=== PATIENT | female | born 1985 | race Caucasian/White ===

== ENCOUNTER 2018-02-15 05:50 | Inpatient (IN) | payer OTHER ==
[~2018-02-15 05:50] MED LIST: CITRIC ACID/SODIUM CITRATE 30 ML UNIT-DOSE CUP PO ONE; ELECTROLYTE-148 SOLN 500 ML IV ONE; TERBUTALINE SULFATE 1 MG/1 ML VIAL SQ ONE
[2018-02-15] MEDS ORDERED: ELECTROLYTE-148 SOLN 500 ML IV ONE (06:20)
[2018-02-15 07:05] VITALS: BMI 35.9
[2018-02-15] MEDS ORDERED: AMPICILLIN SODIUM 2 GM VIAL ONE (07:26)
[2018-02-15 07:28] LABS: BASO % 0.4 % (0-2.0); HEMATOCRIT 34.8 % (32.4-45.2); HEMOGLOBIN 11.8 GM/dL (10.7-15.3); LYMPH % 20.7 % (8-40); MCH 28.6 pg (25.7-33.7); MCHC 33.8 g/dl (32.0-36.0); MEAN CELL VOLUME 84.5 fl (80-96); MEAN PLT VOLUME 10.2 fl (7.5-11.1); MONO % 6.7 % (3.8-10.2); NEUT % 71.2 % (42.8-82.8); PLATELET COUNT 233 K/MM3 (134-434); RBC 4.12 M/mm3 (3.60-5.2); RDW 12.8 % (11.6-15.6)
[2018-02-15 07:49] LABS: ANION GAP 8 (8-16); BLOOD UREA NITROGEN 6 mg/dL (7-18); CALCIUM 8.7 mg/dL (8.5-10.1); CHLORIDE 104 mmol/L (98-107); CO2 26 mmol/L (21-32); CREATININE 0.5 mg/dL (0.55-1.02); GLUCOSE,RANDOM 94 mg/dL (74-106); POTASSIUM 4.2 mmol/L (3.5-5.1); SODIUM 138 mmol/L (136-145)
[2018-02-15 07:50] LABS: INR 0.93 (0.82-1.09); PROTHROMBIN TIME (PATIENT) 10.5 SEC (9.7-13.0)
[2018-02-15 07:53] LABS: ACTIVATED PTT 27.4 SECONDS (25.2-36.5)
--- NOTE | 2018-02-15 08:10 | HP ---
Past Medical History - Admission Chief Complaint: Spontaneous rupture of membrane History of Present Illness: 32 yo @ 35 weeks gestation, EDC 03/16/18, presents to L&D c/o leakage of fluid associated with contractions pain. She had 2 previous C-Sections; she desires permanent sterilization. History Source: Patient Limitations to Obtaining History: No Limitations - Past Medical History ...: 6 ...Para: 4 ...Term: 4 ...: 0 ...Spon : 0 ...Induced : 1 ...Multiple Gestation: 0 ...LMP: 06/10/17 ... Weeks Gestation by Dates: 35.4 ...EDC by Dates: 03/17/18 ...EDC by Sono: 03/16/18 - Past Surgical History Past Surgical History: Yes: Hx Myomectomy: No Hx Transabdominal Cerclage: No - Smoking History Smoking history: Former smoker Have you smoked in the past 12 months: No Aproximately how many cigarettes per day: 0 If you are a former smoker, when did you quit?: 07/2017 - Alcohol/Substance Use Hx Alcohol Use: No History of Substance Use: reports: None - Social History Usual Living Arrangement: Yes: With Significant Other History of Recent Travel: No Home Medications - Allergies Allergies/Adverse Reactions: Allergies Allergy/AdvReac Type Severity Reaction Status Date / Time Pork/Porcine Containing Allergy Intermediate Hives Verified 02/15/18 11:22 Products - Home Medications Home Medications: Ambulatory Orders Pnv No.95/Ferrous Fum/Folic AC [ Tablet] 1 each PO DAILY 10/01/12 Acetaminophen [Tylenol .Regular Strength -] 500 mg PO Q4H PRN #30 tablet Docusate Sodium [Colace] 100 mg PO BID #60 capsule 02/18/18 Ferrous Sulfate [Feosol] 325 mg PO BID #60 tab 02/18/18 Ibuprofen [Motrin -] 600 mg PO Q4H PRN #20 tablet 02/18/18 Vitamins (Sjr) - 1 tab PO DAILY #30 tablet 02/18/18 Review of Systems - Review of Systems Constitutional: reports: No Symptoms Eyes: reports: No Symptoms HENT: reports: No Symptoms Neck: reports: No Symptoms Cardiovascular: reports: No Symptoms Respiratory: reports: No Symptoms Genitourinary: reports: No Symptoms Breasts: reports: No Symptoms Reported Musculoskeletal: reports: No Symptoms Integumentary: reports: No Symptoms Neurological: reports: No Symptoms Endocrine: reports: No Symptoms Hematology/Lymphatic: reports: No Symptoms Psychiatric: reports: No Symptoms Pain Intensity: 5 Physical Exam - Maternity Vital Signs: Vital Signs Temperature 98.6 F 02/15/18 06:42 Pulse Rate 80 02/15/18 06:42 Respiratory Rate 18 02/15/18 06:42 Blood Pressure 127/80 02/15/18 06:42 O2 Sat by Pulse Oximetry (%) Constitutional: Yes: Well Nourished Eyes: Yes: Conjunctiva Clear HENT: Yes: Atraumatic Neck: Yes: Supple, Trachea Midline Cardiovascular: Yes: Regular Rate and Rhythm Lungs: Clear to auscultation - Abdominal Exam/OB Number of Fetuses: Single Presentation: Vertex - Vaginal Exam/OB Vaginal Bleediing: No Dilatation (cm): 0 - Physical Exam ...Motor Strength: WNL Psychiatric: Yes: Alert, Oriented - Labs Lab Results: CBC, BMP 02/15/18 06:30 02/15/18 06:30 Problem List - Problems (1) Previous section complicating , antepartum condition or complication Code(s): O34.219 - MATERNAL CARE FOR UNSP TYPE SCAR FROM PREVIOUS DEL (2) premature rupture of membranes (PPROM) with onset of labor after 24 hours of rupture in first trimester, antepartum Code(s): O42.111 - PRETRM YOANDY ROM, ONSET LABOR > 24 HOURS FOL RUPT, FIRST TRI Assessment/Plan 35 weeks gestation PPROM Multiparity Pre op for and BTL Consent signed Anesthesia to see patient
[2018-02-15] MEDS ORDERED: AMPICILLIN SODIUM 2 GM VIAL IVPB ONE (08:13)
[2018-02-15] MEDS ORDERED: morphine SULFATE/Preservative Free 0.5 MG/ML (1cc Syringe) ONE (08:50)
[2018-02-15] MEDS ORDERED: ceFAZolin SODIUM 1 GM VIAL ONE (08:52)
[2018-02-15] MEDS ORDERED: BUPIVACAINE 0.75% IN DEXTROSE/PF 2ML AMPULE NR ONE (08:59)
[2018-02-15] MEDS ORDERED: OXYTOCIN 10 UNITS/ML VIAL ONE ×2 (09:06→09:53)
[2018-02-15] MEDS ORDERED: METHYLERGONOVINE MALEATE 0.2 MG/1 ML AMP IM PRN (10:11)
[2018-02-15] MEDS ORDERED: ONDANSETRON 4 MG/2 ML VIAL IVPUSH PRN (10:18)
[2018-02-15] MEDS ORDERED: IBUPROFEN 800 MG/8 ML IJ IVPB PRN (10:18)
--- NOTE | 2018-02-15 10:18 | OP ---
Operative Note - Note: Operative Date: 02/15/18 Pre-Operative Diagnosis: PPROM / Previous in labor / Multiparity Operation: Repeat Low Transverse / Bilateral tubal ligation Findings: Multiple adhesions Uterus adherence to anterior abdominal wall Post-Operative Diagnosis: Same as Pre-op Surgeon: Vonda Peace Medical Biller Coder: Dawit Bess Anesthesia: Spinal Specimens Removed: Placenta / Portion of tubes Estimated Blood Loss (mls): 700 Operative Report Dictated: Yes
--- NOTE | 2018-02-15 10:32 | SURG ---
Surgery Top Coater Note Top Coater: Dawit Bess PA-C Date of Service: 02/15/18 Diagnosis: history of repeat Procedure: Cesarian section and tubal ligation I was present for the entirety of the operative procedure. For further detail, please refer to operative report.
[2018-02-15] MEDS ORDERED: OXYTOCIN 20 UNITS in 0.9% NS 20 UNIT/1,000 ML INFUS.BAG IV ONE (11:43)
[2018-02-15] MEDS: OXYTOCIN 20 UNITS in 0.9% NS 20 UNIT/1,000 ML INFUS.BAG IV SCH (11:48)
[2018-02-15] MEDS: IBUPROFEN 800 MG/8 ML IJ IVPB PRN ×2 (12:33→22:50)
[2018-02-15] MEDS: FERROUS SO4 325 MG TABLET (FP) PO SCH (22:47)
[2018-02-16] MEDS: IBUPROFEN 800 MG/8 ML IJ IVPB PRN (07:25)
[2018-02-16 07:31] LABS: BASO % 0.5 % (0-2.0); EOS % 0.5 % (0-4.5); HEMATOCRIT 27.7 % (32.4-45.2); HEMOGLOBIN 9.5 GM/dL (10.7-15.3); LYMPH % 14.8 % (8-40); MCH 29.2 pg (25.7-33.7); MCHC 34.3 g/dl (32.0-36.0); MEAN CELL VOLUME 85.3 fl (80-96); MEAN PLT VOLUME 8.9 fl (7.5-11.1); NEUT % 77.2 % (42.8-82.8); PLATELET COUNT 169 K/MM3 (134-434); RBC 3.24 M/mm3 (3.60-5.2); RDW 12.7 % (11.6-15.6); WHITE BLOOD COUNT 7.4 K/mm3 (4.0-10.0)
--- NOTE | 2018-02-16 08:17 | PN ---
Post Progress Note - Subjective Subjective: c/o pain ,scale 8/10 she took pain meds . not voided yet . Post Day: 1 Type of Delivery: Repeat C/S Vital Signs: Vital Signs Temperature 98.1 F 02/16/18 02:00 Pulse Rate 96 H 02/16/18 02:00 Respiratory Rate 18 02/16/18 07:00 Blood Pressure 110/58 02/16/18 02:00 O2 Sat by Pulse Oximetry (%) 100 02/15/18 11:50 Breast Exam: Yes: Soft, Other (plans to BF , will pump the milk ). No: Engorged Uterus: Yes: Fundus Firm, Fundus below umbilicus, Non-tender Incision: Yes: Dressing dry and intact. No: Redness, Oozing Abdomen/GI: Yes: Abdomen soft, Passing flatus, Tolerating PO (clear liqiuds ). No: Abdominal Distention, Tender Lochia: Yes: Rubra Lochia, amount: Moderate Extremities: Yes: Calves non-tender Perineum: Yes: Intact Activity: Ambulating - Labs Labs: CBC WBC 7.4 K/mm3 (4.0-10.0) 02/16/18 06:00 RBC 3.24 M/mm3 (3.60-5.2) L 02/16/18 06:00 Hgb 9.5 GM/dL (10.7-15.3) L 02/16/18 06:00 Hct 27.7 % (32.4-45.2) L D 02/16/18 06:00 MCV 85.3 fl (80-96) 02/16/18 06:00 MCH 29.2 pg (25.7-33.7) 02/16/18 06:00 MCHC 34.3 g/dl (32.0-36.0) 02/16/18 06:00 RDW 12.7 % (11.6-15.6) 02/16/18 06:00 Plt Count 169 K/MM3 (134-434) D 02/16/18 06:00 MPV 8.9 fl (7.5-11.1) D 02/16/18 06:00 Absolute Neuts (auto) 5.8 # 02/16/18 06:00 Neutrophils % 77.2 % (42.8-82.8) 02/16/18 06:00 Lymphocytes % 14.8 % (8-40) D 02/16/18 06:00 Monocytes % 7.0 % (3.8-10.2) 02/16/18 06:00 Eosinophils % 0.5 % (0-4.5) 02/16/18 06:00 Basophils % 0.5 % (0-2.0) 02/16/18 06:00 Nucleated RBC % 0 % (0-0) 02/16/18 06:00 Other Findings, Remarks: rs cta i/o adequate Problem List - Problems (1) section Code(s): Z98.89 - OTHER SPECIFIED POSTPROCEDURAL STATES * DO NOT USE * (2) care following delivery Code(s): Z39.2 - ENCOUNTER FOR ROUTINE FOLLOW-UP Assessment/Plan anemia s/p repeat c/s day #[address] po care
--- NOTE | 2018-02-16 08:44 | PN ---
Progress Note, Physician Chief Complaint: Pt ambulating and voiding, pain controlled, no anesthesia complaints. - Current Medication List Current Medications: Active Medications Bisacodyl (Dulcolax Suppository -) 10 mg RC PRN PRN PRN Reason: CONSTIPATION Ferrous Sulfate (Feosol -) 325 mg PO BID [facility] Last Admin: 02/15/18 22:47 Dose: Not Given Oxytocin/Sodium Chloride (Normal Saline+20 Units Oxytocin -) 20 unit in 1,000 mls @ 125 mls/hr IV ASDIR [facility] Last Admin: 02/15/18 11:48 Dose: 125 mls/hr Ibuprofen (Motrin -) 600 mg PO Q4H PRN PRN Reason: PAIN LEVEL 1 - 3 Ibuprofen (Caldolor Injection -) 800 mg IVPB Q8H PRN PRN Reason: PAIN LEVEL 4 - 6 Last Admin: 02/16/18 07:25 Dose: 800 mg Ibuprofen (Caldolor Injection -) 800 mg IVPB Q6H PRN PRN Reason: Pain - Pacu Stop: 02/16/18 09:30 Methylergonovine Maleate (Methergine Injection -) 0.2 mg IM Q4H PRN PRN Reason: Excessive Bleeding (L&D) Ondansetron HCl (Zofran Injection) 4 mg IVPUSH Q6H PRN PRN Reason: NAUSEA AND/OR VOMITING Multivit/Folic Acid/Iron ( Vitamins (Sjr) -) 1 tab PO DAILY [facility] Simethicone (Mylicon -) 80 mg PO Q4H PRN PRN Reason: GAS - Objective Vital Signs: Vital Signs Temperature 98.1 F 02/16/18 02:00 Pulse Rate 96 H 02/16/18 02:00 Respiratory Rate 18 02/16/18 08:00 Blood Pressure 110/58 02/16/18 02:00 O2 Sat by Pulse Oximetry (%) 100 02/15/18 11:50 Constitutional: Yes: Well Nourished, No Distress, Calm Musculoskeletal: Yes: WNL Neurological: Yes: WNL, Alert, Oriented ...Motor Strength: WNL Labs: CBC, BMP 02/16/18 06:00 02/15/18 06:30 INR, PTT INR 0.93 (0.82-1.09) 02/15/18 06:30 Assessment/Plan POD#1 s/p repeat under spinal with duramorph. Doing well. D/C from anesthesia care.
[2018-02-16] MEDS: FERROUS SO4 325 MG TABLET (FP) PO SCH ×2 (10:07→21:52)
[2018-02-16] MEDS: PRENATAL VITAMINS W/ FOLIC ACID TABLET (FP) PO SCH (10:07)
[2018-02-16] MEDS ORDERED: BISACODYL 10 MG SUPP.RECT RC PRN (10:11)
[2018-02-16] MEDS: SIMETHICONE 80 MG TAB.CHEW (FP) PO PRN (14:43)
[2018-02-16] MEDS: IBUPROFEN 600 MG TABLET (FP) PO PRN (14:43)
[2018-02-16] MEDS: oxyCODONE HCL 5 MG TABLET PO PRN (17:34)
[2018-02-16] MEDS: ACETAMINOPHEN 325 MG TABLET (FP) PO PRN (17:34)
[2018-02-16] MEDS: OXYTOCIN 20 UNITS in 0.9% NS 20 UNIT/1,000 ML INFUS.BAG IV SCH (18:33)
[2018-02-17] MEDS: SIMETHICONE 80 MG TAB.CHEW (FP) PO PRN ×3 (00:55→17:59)
[2018-02-17] MEDS: IBUPROFEN 600 MG TABLET (FP) PO PRN (00:55)
[2018-02-17] MEDS: ACETAMINOPHEN 325 MG TABLET (FP) PO PRN ×3 (00:56→18:00)
[2018-02-17] MEDS: PRENATAL VITAMINS W/ FOLIC ACID TABLET (FP) PO SCH (09:50)
[2018-02-17] MEDS: FERROUS SO4 325 MG TABLET (FP) PO SCH ×2 (09:50→21:34)
[2018-02-17] MEDS: oxyCODONE HCL 5 MG TABLET PO PRN ×2 (09:53→18:00)
--- NOTE | 2018-02-17 11:56 | PN ---
Post Progress Note - Subjective Subjective: no complains, pain is well controlled with meds voiding without difficulty Post Day: 2 Type of Delivery: Repeat C/S Vital Signs: Vital Signs Temperature 98.6 F 02/17/18 09:38 Pulse Rate 84 02/17/18 09:38 Respiratory Rate 18 02/17/18 09:38 Blood Pressure 110/76 02/17/18 09:38 O2 Sat by Pulse Oximetry (%) 100 02/15/18 11:50 Breast Exam: Yes: Soft. No: Engorged Uterus: Yes: Fundus Firm, Fundus below umbilicus, Non-tender Incision: Yes: Sutures intact. No: Redness, Oozing Abdomen/GI: Yes: Abdomen soft, Passing flatus (bm done ), Tolerating PO (diet ) . No: Abdominal Distention Lochia: Yes: Rubra Lochia, amount: Moderate Extremities: Yes: Calves non-tender Perineum: Yes: Intact Activity: Ambulating - Labs Labs: CBC WBC 7.4 K/mm3 (4.0-10.0) 02/16/18 06:00 RBC 3.24 M/mm3 (3.60-5.2) L 02/16/18 06:00 Hgb 9.5 GM/dL (10.7-15.3) L 02/16/18 06:00 Hct 27.7 % (32.4-45.2) L D 02/16/18 06:00 MCV 85.3 fl (80-96) 02/16/18 06:00 MCH 29.2 pg (25.7-33.7) 02/16/18 06:00 MCHC 34.3 g/dl (32.0-36.0) 02/16/18 06:00 RDW 12.7 % (11.6-15.6) 02/16/18 06:00 Plt Count 169 K/MM3 (134-434) D 02/16/18 06:00 MPV 8.9 fl (7.5-11.1) D 02/16/18 06:00 Absolute Neuts (auto) 5.8 # 02/16/18 06:00 Neutrophils % 77.2 % (42.8-82.8) 02/16/18 06:00 Lymphocytes % 14.8 % (8-40) D 02/16/18 06:00 Monocytes % 7.0 % (3.8-10.2) 02/16/18 06:00 Eosinophils % 0.5 % (0-4.5) 02/16/18 06:00 Basophils % 0.5 % (0-2.0) 02/16/18 06:00 Nucleated RBC % 0 % (0-0) 02/16/18 06:00 Problem List - Problems (1) section Code(s): Z98.89 - OTHER SPECIFIED POSTPROCEDURAL STATES * DO NOT USE * (2) care following delivery Code(s): Z39.2 - ENCOUNTER FOR ROUTINE FOLLOW-UP Assessment/Plan anemia , post op c/section stable plan ct po care
[2018-02-18] MEDS: SIMETHICONE 80 MG TAB.CHEW (FP) PO PRN ×2 (03:56→16:10)
[2018-02-18] MEDS: oxyCODONE HCL 5 MG TABLET PO PRN ×2 (03:56→16:11)
[2018-02-18] MEDS: ACETAMINOPHEN 325 MG TABLET (FP) PO PRN (03:57)
[2018-02-18 07:47] LABS: BASO % 0.5 % (0-2.0); EOS % 1.8 % (0-4.5); HEMATOCRIT 22.8 % (32.4-45.2); HEMOGLOBIN 7.9 GM/dL (10.7-15.3); LYMPH % 17.9 % (8-40); MCH 29.2 pg (25.7-33.7); MCHC 34.6 g/dl (32.0-36.0); MEAN CELL VOLUME 84.5 fl (80-96); MONO % 6.7 % (3.8-10.2); NEUT % 73.1 % (42.8-82.8); PLATELET COUNT 179 K/MM3 (134-434); RDW 13.2 % (11.6-15.6); WHITE BLOOD COUNT 6.1 K/mm3 (4.0-10.0)
[2018-02-18] MEDS: PRENATAL VITAMINS W/ FOLIC ACID TABLET (FP) PO SCH (09:53)
[2018-02-18] MEDS: FERROUS SO4 325 MG TABLET (FP) PO SCH ×2 (09:53→21:29)
--- NOTE | 2018-02-18 10:21 | PN ---
Post Progress Note - Subjective Subjective: no c/o dizziness pain is not bothersome no c/o dizziness Post Day: 3 Type of Delivery: Repeat C/S Vital Signs: Vital Signs Temperature 98.2 F 02/18/18 09:23 Pulse Rate 88 02/18/18 09:23 Respiratory Rate 20 02/18/18 09:23 Blood Pressure 119/73 02/18/18 09:23 O2 Sat by Pulse Oximetry (%) 100 02/15/18 11:50 Breast Exam: Yes: Soft, Other (pumping milk ). No: Engorged Uterus: Yes: Fundus Firm, Fundus below umbilicus, Non-tender Incision: Yes: Mariel intact. No: Redness, Oozing Abdomen/GI: Yes: Abdomen soft, Passing flatus (bm done ), Tolerating PO (diet). No: Abdominal Distention, Tender Lochia: Yes: Rubra Lochia, amount: Moderate Extremities: Yes: Calves non-tender, Edema Perineum: Yes: Intact Activity: Ambulating - Labs Labs: CBC WBC 6.1 K/mm3 (4.0-10.0) 02/18/18 07:05 RBC 2.70 M/mm3 (3.60-5.2) L 02/18/18 07:05 Hgb 7.9 GM/dL (10.7-15.3) L 02/18/18 07:05 Hct 22.8 % (32.4-45.2) L D 02/18/18 07:05 MCV 84.5 fl (80-96) 02/18/18 07:05 MCH 29.2 pg (25.7-33.7) 02/18/18 07:05 MCHC 34.6 g/dl (32.0-36.0) 02/18/18 07:05 RDW 13.2 % (11.6-15.6) 02/18/18 07:05 Plt Count 179 K/MM3 (134-434) 02/18/18 07:05 MPV 9.0 fl (7.5-11.1) 02/18/18 07:05 Absolute Neuts (auto) 4.5 # 02/18/18 07:05 Neutrophils % 73.1 % (42.8-82.8) 02/18/18 07:05 Lymphocytes % 17.9 % (8-40) D 02/18/18 07:05 Monocytes % 6.7 % (3.8-10.2) 02/18/18 07:05 Eosinophils % 1.8 % (0-4.5) D 02/18/18 07:05 Basophils % 0.5 % (0-2.0) 02/18/18 07:05 Nucleated RBC % 0 % (0-0) 02/18/18 07:05 Problem List - Problems (1) section Code(s): Z98.89 - OTHER SPECIFIED POSTPROCEDURAL STATES * DO NOT USE * (2) care following delivery Code(s): Z39.2 - ENCOUNTER FOR ROUTINE FOLLOW-UP Assessment/Plan po c/section , anemia hemodynamically stable . Plan ; ct po care anemia is counselled, not willing for transfusion
[2018-02-18] MEDS: IBUPROFEN 600 MG TABLET (FP) PO PRN (16:10)
[2018-02-19] MEDS: oxyCODONE HCL 5 MG TABLET PO PRN (00:23)
[2018-02-19] MEDS: SIMETHICONE 80 MG TAB.CHEW (FP) PO PRN (00:23)
[2018-02-19] MEDS: IBUPROFEN 600 MG TABLET (FP) PO PRN (00:24)
--- NOTE | 2018-02-19 05:56 | PN ---
Post Progress Note - Subjective Subjective: no c/o dizziness oob ambulating without difficulty bm done voiding , no problems Post Day: 4 Type of Delivery: Repeat C/S Vital Signs: Vital Signs Temperature 98.3 F 02/18/18 22:00 Pulse Rate 100 H 02/18/18 22:00 Respiratory Rate 20 02/18/18 22:00 Blood Pressure 128/76 02/18/18 22:00 O2 Sat by Pulse Oximetry (%) 100 02/15/18 11:50 Breast Exam: Yes: Soft, Other (pumping ). No: Engorged Uterus: Yes: Fundus Firm, Fundus below umbilicus, Non-tender Incision: Yes: Saxon intact. No: Redness, Oozing Abdomen/GI: Yes: Abdomen soft, Passing flatus (bm done ), Tolerating PO (diet). No: Abdominal Distention, Tender Lochia: Yes: Rubra Lochia, amount: Moderate Extremities: Yes: Calves non-tender Perineum: Yes: Intact Activity: Ambulating - Labs Labs: CBC WBC 6.1 K/mm3 (4.0-10.0) 02/18/18 07:05 RBC 2.70 M/mm3 (3.60-5.2) L 02/18/18 07:05 Hgb 7.9 GM/dL (10.7-15.3) L 02/18/18 07:05 Hct 22.8 % (32.4-45.2) L D 02/18/18 07:05 MCV 84.5 fl (80-96) 02/18/18 07:05 MCH 29.2 pg (25.7-33.7) 02/18/18 07:05 MCHC 34.6 g/dl (32.0-36.0) 02/18/18 07:05 RDW 13.2 % (11.6-15.6) 02/18/18 07:05 Plt Count 179 K/MM3 (134-434) 02/18/18 07:05 MPV 9.0 fl (7.5-11.1) 02/18/18 07:05 Absolute Neuts (auto) 4.5 # 02/18/18 07:05 Neutrophils % 73.1 % (42.8-82.8) 02/18/18 07:05 Lymphocytes % 17.9 % (8-40) D 02/18/18 07:05 Monocytes % 6.7 % (3.8-10.2) 02/18/18 07:05 Eosinophils % 1.8 % (0-4.5) D 02/18/18 07:05 Basophils % 0.5 % (0-2.0) 02/18/18 07:05 Nucleated RBC % 0 % (0-0) 02/18/18 07:05 Problem List - Problems (1) section Code(s): Z98.89 - OTHER SPECIFIED POSTPROCEDURAL STATES * DO NOT USE * (2) care following delivery Code(s): Z39.2 - ENCOUNTER FOR ROUTINE FOLLOW-UP Assessment/Plan post c/section , anemia stable hemodynamically Anemia counselled blood transfusion , she declined yesterday discharge today
[2018-02-19 08:55] VITALS: BP 122/72; PULSE 85; TEMP 98.5
[2018-02-19] MEDS: PRENATAL VITAMINS W/ FOLIC ACID TABLET (FP) PO SCH (10:30)
[2018-02-19] MEDS: FERROUS SO4 325 MG TABLET (FP) PO SCH (10:30)
--- NOTE | 2018-02-22 17:01 | PATH ---
Surgical Pathology Report Patient Name: YENI CLEANING [facility]. Rec. 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 Specimen(s) Received A: PLACENTA B: RIGHT FALLOPIAN TUBE C: LEFT FALLOPIAN TUBE Clinical History , 35.5 weeks, x2, x2 Final Diagnosis A. PLACENTA, SECTION: 389 g THIRD TRIMESTER PLACENTA WITH TRIVASCULAR UMBILICAL CORD AND UNREMARKABLE PLACENTAL MEMBRANES. B. FALLOPIAN TUBE, RIGHT, PARTIAL EXCISION: FULL LUMINAL PORTION OF UNREMARKABLE FALLOPIAN TUBE. C. FALLOPIAN TUBE, LEFT, PARTIAL EXCISION: FULL LUMINAL PORTION OF UNREMARKABLE FALLOPIAN TUBE. Electronically Signed Brittny Jackson M.D. Gross Description A. The specimen is received fresh labeled placenta and is a 389 gram, 15.0 x 13.5 x 3.0 cm. placenta with attached membranes and umbilical cord. The attached membranes are sanders, translucent with focal opacities and insert marginally. The umbilical cord measures 30 cm. in length and averages 1.1 cm. in diameter. The cord inserts eccentrically, 1.8 cm. to the nearest margin. No true knots or strictures are identified. Cut surface of the umbilical cord reveals 3 vessels. The surface is sam-blue with minimal fibrin deposition and appropriate caliber vessels. The maternal surface is red-brown with focal defects. Sectioning reveals red-brown, spongy parenchyma. No lesions are identified. Senior Shipping Clerk sections are submitted in three cassettes as follows: 1- membrane rolls and umbilical cord; 2-3- full thickness sections of placenta. B. received in formalin labeled "portion of right fallopian tube," is a 2.3 cm in length portion of fallopian tube. No fimbria are present. The outer surface is sandres-solomon and smooth. Sectioning reveals an unremarkable lumen. Senior Shipping Clerk sections are submitted in one cassette. C. Received in formalin labeled "portion of left fallopian tube," is a 2.2 cm in length portion of fallopian tube. No fimbria are present. The outer surface is sanders-solomon and smooth. Sectioning reveals an unremarkable lumen. Senior Shipping Clerk sections are submitted in one cassette. 02/18/2018 [facility]02/18/2018
== END 2018-02-19 12:20 | disposition home or self-care (01) | DRG 540 ==
LOC: JLDR 05:50 → J3W 12:06
PROVIDERS: ADMIT Obstetrics & Gynecology; ATTEND Obstetrics & Gynecology
PROC: 10D00Z1 Extraction of Products of Conception, Low, Open Approach (ICD-10-PCS; principal; 2018-02-15)
PROC: 0UB70ZZ Excision of Bilateral Fallopian Tubes, Open Approach (ICD-10-PCS; 2018-02-15)
PROC: 0DNW0ZZ Release Peritoneum, Open Approach (ICD-10-PCS; 2018-02-15)
DX: O42.113 Preterm premature rupture of membranes, onset of labor more than 24 hours following rupture, third trimester (principal); O34.219 Maternal care for unspecified type scar from previous cesarean delivery; O90.81 Anemia of the puerperium; K66.0 Peritoneal adhesions (postprocedural) (postinfection); Z3A.35 35 weeks gestation of pregnancy; Z37.0 Single live birth; Z30.2 Encounter for sterilization
CPT/HCPCS: 36415; 80048; 85025; 85610; 85730; 86593; 86850; 86900; 86901; 87389; 88302-TC; 88307-TC

== ENCOUNTER 2019-09-14 01:46 | Emergency (ER) | payer OTHER ==
[2019-09-14 02:15] VITALS: TEMP 98.3; BMI 28.6
--- NOTE | 2019-09-14 02:24 | PDOC ---
Attending Attestation - Resident Resident Name: Stacy Husain - ED Attending Attestation I have performed the following: I have examined & evaluated the patient, The case was reviewed & discussed with the resident, I agree w/resident's findings & plan - HPI HPI: 09/14/19 03:18 see resident hpi - Physicial Exam PE: 09/14/19 03:19 see resident exam - Medical Decision Making 09/14/19 03:19 33-year-old female with right-sided headache, gradual in onset present for greater than [address] scan of the brain ordered due to change in headache pattern Patient to receive IV fluid normal saline, Reglan, Benadryl and IV Tylenol Plan on reevaluation, if patient fails to improve will consider lumbar puncture
--- NOTE | 2019-09-14 02:38 | PDOC ---
History of Present Illness - General Chief Complaint: Headache Stated Complaint: HEADACHE Time Seen by Provider: 09/14/19 02:21 History Source: Patient Exam Limitations: No Limitations - History of Present Illness Initial Comments: 09/14/19 03:19 33y F with no significant PMH presenting to ED with complaints of R sided NICOLE that started yesterday morning when she woke up. Pt states she has been having headaches on and off since she was 4 years old after a metal beam fell on her head. She says the pain is usually left sided and the pain has been more frequent over the past 2 months but the R sided headache is new. She endorses pins and needle sensations in her arms and legs at times when the headache comes. She has not taken any medications for the headache. She went to [place] 1 month ago and said she only had blood work done, did not get medications. Has not followed up with neurology. PMD: [place] PMH: none PSH: tubal ligation, csection Meds: none Allergies: nkda Past History - Past Medical History Allergies/Adverse Reactions: Allergies Allergy/AdvReac Type Severity Reaction Status Date / Time Pork/Porcine Containing Allergy Intermediate Hives Verified 09/14/19 02:15 Products Home Medications: Ambulatory Orders NK [No Known Home Medication] 09/14/19 Anemia: No Asthma: No Cancer: No Cardiac Disorders: No COPD: No DVT: No Diabetes: No Disorders: No HTN: No Liver Disease: No Psychiatric Problems: No Seizures: No Thyroid Disease: No - Reproductive History (#): 4 Para: 3 PID: No Polycystic Ovaries: No - Immunization History Immunization Up to Date: Yes - Psycho Social/Smoking Cessation Hx Smoking Status: No Smoking History: Current some day smoker Have you smoked in the past 12 months: Yes Number of Cigarettes Smoked Daily: 10 If you are a former smoker, when did you quit?: 07/2017 Information on smoking cessation initiated: No Hx Alcohol Use: No Drug/Substance Use Hx: Yes (Marijuana) Substance Use Type: None Hx Substance Use Treatment: No Review of Systems - Review of Systems Constitutional: No: Symptoms Reported HEENTM: No: Eye Pain, Blurred Vision, Tinnitus Respiratory: No: Symptoms reported Cardiac (ROS): No: Symptoms Reported ABD/GI: Yes: Nausea Musculoskeletal: No: Symptoms Reported Integumentary: No: Symptoms Reported Neurological: Yes: See HPI *Physical Exam - Vital Signs Last Vital Signs Temp Pulse Resp BP Pulse Ox 98.3 F 78 19 121/83 99 09/14/19 01:46 09/14/19 01:46 09/14/19 01:46 09/14/19 01:46 09/14/19 01:46 - Physical Exam General Appearance: Yes: Nourished, Appropriately Dressed, Moderate Distress HEENT: positive: EOMI, LUKAS, Symmetrical Neck: positive: Trachea midline, Supple Respiratory/Chest: positive: Lungs Clear, Normal Breath Sounds. negative: Crackles, Rales, Rhonchi, Stridor, Wheezing Cardiovascular: positive: Regular Rhythm, Regular Rate, S1, S2. negative: Edema , JVD, Murmur Gastrointestinal/Abdominal: positive: Normal Bowel Sounds, Soft. 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 has not taken any mediations. denies neck stiffness, fever, rash, sudden onset/thunderclap headache. low suspicion for meningitis, iih, sah. likely migraine nicole. will give nicole cocktail- ofirmev, reglan, benadryl, decadron, ivf ct head due to history of injury and new type of nicole. reassess. does not require lp or labs at this time. The ventricular system is midline and nondilated. The sulcal pattern is normal for the patient's age. There is no bleed, mass, extra-axial fluid collection or mass effect. No skull fracture or skull lesion is identified. The visualized paranasal sinuses and mastoid air cells are clear. 09/14/19 06:44 pt reports pain 5/10 from 9/10. with headache worsened by cough. pt may benefit from LP to r/o meningitis, SAH, IIH. Pt informed about procedure , risks including infection, worsening headache, bleed. Pt understands and consented to procedure. See procedure note; performed under supervision of Dr. Gonzalez. ~5-6mL drained. csf negative for bleed, meningitis. upon reassessment, pt feels much better, reporting near resolution of symptoms. likely intracranial hypertension. can dc home. given referrals to neurology. Discharge - Discharge Information Problems reviewed: Yes Clinical Impression/Diagnosis: Headache Qualifiers: Headache type: unspecified Headache chronicity pattern: unspecified pattern Intractability: not intractable Qualified Code(s): R51 - Headache Condition: Improved Disposition: HOME - Follow up/Referral Referrals: Marcus Buitrago MD [Primary Care Provider] - Saeid Bo MD [Staff Physician] - Norman Hyde MD [Staff Physician] - Dalton Rocha MD [Staff Physician] - Alex Abreu MD [Staff Physician] - Wolfgang Kaiser MD [Staff Physician] - - Patient Discharge Instructions Patient Printed Discharge Instructions: DI for Migraine, DI for Headache Additional Instructions: You were seen in the emergency room today for headache. The spinal tap is normal; there is no infection or bleed. I recommend following up with a neurologist. A list of neurologists is provided below. Please try to set up an appointment regarding your headaches. You can take Advil/ibuprofen and Tylenol for the headaches as needed. Come back to the emergency room if headaches get worse, you develop fever, have difficulty with vision or if any new or concerning symptom develops. Thank you - Post Discharge Activity Work/Back to School Note: Back to Work
[2019-09-14] MEDS ORDERED: ACETAMINOPHEN 1000 MG/100 ML VIAL (NON FORMULARY) IVPB ONE (02:47)
[2019-09-14] MEDS ORDERED: SODIUM CHLORIDE 1,000 ML IV STA (02:47)
[2019-09-14] MEDS ORDERED: METOCLOPRAMIDE HCL INJECTION 10 MG/2 ML VIAL IVPB ONE (02:47)
[2019-09-14] MEDS ORDERED: DEXAMETHASONE SOD PHOSPHATE 10 MG/1 ML VIAL IVPUSH ONE (02:51)
[2019-09-14] MEDS ORDERED: DEXAMETHASONE SOD PHOSPHATE 10 MG/1 ML VIAL ONE (03:04)
[2019-09-14] MEDS ORDERED: ACETAMINOPHEN INJECTION 100 ML IVPB ONE (03:04)
[2019-09-14] MEDS ORDERED: METOCLOPRAMIDE HCL INJECTION 10 MG/2 ML VIAL ONE (03:04)
[2019-09-14] MEDS ORDERED: LIDOCAINE HCL 2% (20ML MULTI-DOSE VIAL) ONE (04:51)
[2019-09-14 06:18] LABS: BF GLUCOSE (CSF ONLY) 63 mg/dL (40-70)
[2019-09-14 06:32] LABS: CSF APPEARANCE CLEAR; CSF COLOR COLORLESS; CSF WBC 2
[2019-09-14 06:33] LABS: CSF APPEARANCE CLEAR; CSF COLOR COLORLESS; CSF WBC 0
[2019-09-14 07:05] VITALS: BP 109/64; PULSE 79
== END 2019-09-14 07:05 | disposition home or self-care (01) ==
LOC: JER 01:46
PROC: 009U3ZX Drainage of Spinal Canal, Percutaneous Approach, Diagnostic (ICD-10-PCS; principal; 2019-09-14)
PROC: 3E033GC Introduction of Other Therapeutic Substance into Peripheral Vein, Percutaneous Approach (ICD-10-PCS; 2019-09-14)
PROC: 3E033GC Introduction of Other Therapeutic Substance into Peripheral Vein, Percutaneous Approach (ICD-10-PCS; 2019-09-14)
PROC: 3E033GC Introduction of Other Therapeutic Substance into Peripheral Vein, Percutaneous Approach (ICD-10-PCS; 2019-09-14)
PROC: 3E0333Z Introduction of Anti-inflammatory into Peripheral Vein, Percutaneous Approach (ICD-10-PCS; 2019-09-14)
DX: R51 Headache (principal); Z87.828 Personal history of other (healed) physical injury and trauma; F17.210 Nicotine dependence, cigarettes, uncomplicated; Z98.51 Tubal ligation status
CPT/HCPCS: 36415; 70450-TC; 82945; 84157; 87070; 87205; 99283-25; J0131; J1100; J7030